=== PATIENT | female | born 1945 | race Caucasian/White ===

== ENCOUNTER 2021-01-31 14:49 | Emergency (ER) | payer MEDICARE, BC ==
[~2021-01-31] VITALS: Ht 154.9 cm; Wt 79.5 kg
[2021-01-31] MEDS ORDERED: fentaNYL PF VIAL 100 MCG/2 ML VIAL IVP ONE (15:30)
[2021-01-31 15:51] LABS: BILIRUBIN,URINE NEGATIVE (NEG); CLARITY,URINE CLEAR; COLOR,URINE YELLOW; NITRITE,URINE NEGATIVE (NEG); PROTEIN,URINE NEGATIVE (NEG-TRACE); UROBILINOGEN,URINE 0.2 mg/dL (0.2 mg/dL)
--- NOTE | 2021-01-31 15:56 | PHYS DOC ---
Past Medical History Past Surgical History: No Surgical History General Adult EDM: Chief Complaint: MECHANICAL FALL HPI: HPI: Patient is a 75 year old female who presents with was walking into [employer] when she tripped and fell over a rubber covered extension cord that was outside. states that they were doing a grill out in front of [employer] and they had it going straight in front of the store and she tripped over it. and patient deny LOC. Patient states she does have a headache that she rates an 8 out of 10. Patient complaints are headache, facial pain with no swelling and a laceration to the upper lip and lower lip and superficial abrasion to the right knee. Patient is on a baby aspirin. Denies syncope, dizziness, nausea, vomiting, back pain, numbness tingling, focal weakness, abdominal pain, chest pain, shortness of air, cough, vision change. Review of Systems: Review of Systems: Constitutional: Denies fever or chills. [] Eyes: Denies change in visual acuity. [] HENT: Denies nasal congestion or sore throat. + Nasal swelling. [] Respiratory: Denies cough or shortness of breath. Cardiovascular: Denies chest pain or edema. [] GI: Denies abdominal pain, nausea, vomiting, bloody stools or diarrhea. [] : Denies dysuria. [] Musculoskeletal: Denies back pain or joint pain. + Facial pain. + Neck t ightness [] Integument: Denies rash. + Knee abrasion [] Neurologic: +headache, denies focal weakness or sensory changes. [] Endocrine: Denies polyuria or polydipsia. [] Lymphatic: Denies swollen glands. [] Psychiatric: Denies depression or anxiety. [] Heart Score: C/O Chest Pain: No Current Medications: Current Medications Medications (Trade) Dose Ordered Sig/Miles Start Time Stop Time Status Last Admin Dose Admin Diphtheria/ Tetanus/Acell Pertussis (ADACEL TDap SYRINGE) 0.5 ml ONCE ONCE 01/31/21 15:30 01/31/21 15:31 UNV Fentanyl Citrate (Fentanyl 2ml Vial) 25 mcg 1X ONCE 01/31/21 15:30 01/31/21 15:31 UNV Neomycin/ Polymyxin/ Bacitracin (Triple Antibiotic Ointment) 3 pkt 1X ONCE 01/31/21 15:30 01/31/21 15:31 UNV Physical Exam: PE: Constitutional: Well developed, well nourished, no acute distress, non-toxic appearance. [] HENT: Normocephalic, atraumatic, bilateral external ears normal, oropharynx moist, no oral exudates, nose normal. Nasal swelling 1+. Dried blood in nares. [] Eyes: PERRLA, EOMI, conjunctiva normal, no discharge. [] Neck: Normal range of motion, focal bony tenderness, supple, no stridor. [] Cardiovascular:Heart rate regular rhythm, no murmur [] Lungs & Thorax: Bilateral breath sounds clear to auscultation [] Abdomen: Bowel sounds normal, soft, no tenderness, no masses, no pulsatile masses. [] Skin: Warm, dry, no erythema, no rash. Superficial abrasion to the right knee. Through and through less than half a centimeter long upper lip laceration that does not affect the vermilion border. Patient has a less than half a centimeter puncture wound to the inner lip that is not through and through. [] Back: No tenderness, no CVA tenderness. [] Extremities: No tenderness, no cyanosis, no clubbing, ROM intact, no edema. [] Neurologic: Alert and oriented X 3, normal motor function, normal sensory function, no focal deficits noted. [] Psychologic: Affect normal, judgement normal, mood normal. [] Current Patient Data: Vital Signs: Vital Signs Date Time Temp Pulse Resp B/P (MAP) Pulse Ox O2 Delivery O2 Flow Rate FiO2 01/31/21 15:00 99.4 91 18 167/68 (101) 97 Room Air 99.4 EKG: EKG: [] Radiology/Procedures: Radiology/Procedures: [] Impression: [facility] [address] [place] [address] IMAGING REPORT Signed PATIENT: MYRIAM GRANADO ACCOUNT: [id number] : 1945 LOCATION: ER AGE: 75 SEX: F EXAM STATUS: REG ER ORD. PHYSICIAN: JOSE DANIEL HAYDEN APRN REASON: FALL, HEAD AND FACE INJURY, NECK PAIN PROCEDURE: CT HEAD AND CERVICAL SPINE WO EXAMINATION: CT HEAD AND C-SPINE WO, CT MAXILLOFACIAL WITHOUT CONTRAST CLINICAL HISTORY: Reason: FALL, HEAD AND FACE INJURY, NECK PAIN / Spl. Instructions: / History: TECHNIQUE: Serial axial images without IV contrast were obtained from the vertex to the foramen magnum. Spiral high resolution axial unenhanced images were obtained through the facial bones with sagittal and coronal planar reconstructions. CT of the cervical spine without IV contrast. Spiral, high resolution axial images were obtained from the skull base to the cervicothoracic junction with sagittal and coronal planar reconstructions. CT Dose Reduction Employed: One or more of the following individualized dose reduction techniques were utilized for this examination: 1. Automated exposure control 2. Adjustment of the mA and/or kV according to patient size 3. Use of iterative reconstruction technique. COMPARISON: None FINDINGS: BRAIN: Acute Change: No evidence of an acute contusion or other acute parenchymal process. Hemorrhage: No evidence of acute intracranial hemorrhage. Mass Lesion/Mass Effect: No evidence of intracranial mass or extraaxial fluid collection. No significant mass effect. Chronic Change: Scattered patchy foci of hypoattenuation in the supratentorial white matter, nonspecific but likely represents mild microvascular ischemia. Atherosclerotic calcification of the intracranial portion of the bilateral internal carotid arteries. Parenchyma: Mild to moderate generalized volume loss. Ventricles: Ventricular enlargement concordant with degree of parenchymal volume loss. Skull Base: No evidence of acute calvarial fracture. MAXILLOFACIAL: Soft Tissues: Subcutaneous contusion and mild subcutaneous emphysema along the bridge of the nose and midline inferior frontal scalp. Facial Bones: Minimally depressed nasal bone fracture. Orbits: No evidence of acute orbital fracture. Globes are intact with bilateral intraocular lens implants. Soft tissue planes of the orbits maintained. Paranasal Sinuses: Mild secretions versus blood products in the dependent left maxillary sinus. Other: 4 mm density with adjacent small focus of subcutaneous emphysema in the midline upper lip, possibly a chipped tooth fragment in the upper lip. No donor site definitively visualized, however evaluation is limited by streak artifact associated with multiple dental fillings. Mild nasal septal deviation to the right. Bilateral TMJ arthropathy. C-SPINE: Alignment: Straightening of Osseous Structures: No evidence of acute fracture or spondylolisthesis. Degenerative Changes: Mild multilevel degenerative disc disease. No evidence of high-grade osseous spinal or neural foraminal stenosis. Mild subcutaneous arthr opathy. Cervical Soft Tissues: No prevertebral soft tissue swelling. IMPRESSION: BRAIN: No evidence of acute intracranial abnormality. MAXILLOFACIAL: Minimally depressed nasal bone fracture with overlying subcutaneous contusion and mild subcutaneous emphysema. 4 mm density in the midline upper lip, possibly a chipped tooth fragment as described, correlate clinically. C-SPINE: No evidence of acute osseous abnormality involving the cervical spine. Electronically signed by: Jesus Huber DO (01/31/2021 5:32 PM) [facility] DICTATED and SIGNED BY: JESUS HUBER DO DATE: 01/31/21 [id number] 0 Course & Med Decision Making: Course & Med Decision Making Pertinent Labs and Imaging studies reviewed. (See chart for details) See HPI. Alert and oriented x4. 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 Ambulatory with a steady gait. Focal bony spinal tenderness to the cervical spine in the neck area. She does have full range of motion of her neck. Nasal swelling 2+ with dried blood in nares bilaterally. She does have an upper lip puncture wound from her bottom teeth that is through and through but does not affect the vermilion border. Patient states she does not want any sutures in her lip if it is not absolutely needed. She does have a second puncture wound in the bottom lip but it is not through and through. No gaping wounds. She has a superficial abrasion to the right knee. No swelling to any joints or deformity. She is moving all of her joints. She denies any numbness or tingling. Neurologically intact. PERRLA. She can breathe out of her nose. There is no is no hematoma. Speaks in full clear sentences. No damage to teeth or her tongue. Patient will receive a tetanus shot as she cannot remember the last shot was. No foreign body is felt or seen in the upper lip. Patient's teeth do not appear to be broken or chipped. Wounds are cleaned with saline and chlorhexidine. Patient again refusing any laceration repair to the upper lip. Patient does have a nasal bone fracture. She will need follow-up with ENT. [] Damion Disclaimer: Damion Disclaimer: This electronic medical record was generated, in whole or in part, using a voice recognition dictation system. Departure Departure Impression: Primary Impression: Nasal bone fracture Qualified Codes: S02.2XXA - Fracture of nasal bones, initial encounter for closed fracture Additional Impressions: Abrasion Laceration of lip Qualified Codes: S01.511A - Laceration without foreign body of lip, initial encounter Disposition: HOME / SELF CARE / HOMELESS Condition: STABLE Referrals: IWONA LONDONO MD Patient Instructions: Abrasions, Fall Prevention and Home Safety, Nasal Fracture, Nose Drops, Saline, [id number] Additional Instructions: Follow-up with your primary care or an ENT doctor for your nasal bone fracture. Do not blow your nose. Use saline nasal spray to help with mucus secretions. Use ice or heating pad to help with any kind of pain you have. Use antibiotic ointment over your wounds. If you begin having vomiting, dizziness, severe headache or a syncopal episode or family is stating that you are not acting herself you should return to the emergency room. Use Tylenol or ibuprofen to help with your pain. Scripts Chlorhexidine Gluconate (PERIDEX) 15 Ml Mouthwash 15-30 ML PO TID for 8 Days, #473 ML 0 Refills SWISH AND SPIT AFTER EVERY MEAL Prov: JOSE DANIEL HAYDEN APRN 01/31/21 JOSE DANIEL HAYDEN APRN Jan 31, 2021 15:56
[2021-01-31 15:59] LABS: BACTERIA,URINE 0 /HPF (0-FEW); RBC,URINE 0 /HPF (0-2); WBC,URINE OCC /HPF (0-4)
[2021-01-31] MEDS ORDERED: HYDROcodone/APAP 5/325MG 1 TAB TABLET PO ONE (16:00)
[2021-01-31] MEDS ORDERED: NEOMY/BACITR/POLYMYXIN OINT PACKET. TP ONE (17:30)
[2021-01-31] MEDS ORDERED: DIPH,PERTUSS(ACELL),TET VAC/PF 0.5 ML SYRINGE. VAX IM ONE (17:30)
--- NOTE | 2021-01-31 17:34 | RAD ---
EXAMINATION: CT HEAD AND C-SPINE WO, CT MAXILLOFACIAL WITHOUT CONTRAST CLINICAL HISTORY: Reason: FALL, HEAD AND FACE INJURY, NECK PAIN / Spl. Instructions: / History: TECHNIQUE: Serial axial images without IV contrast were obtained from the vertex to the foramen magnum. Spiral high resolution axial unenhanced images were obtained through the facial bones with sagittal a nd coronal planar reconstructions. CT of the cervical spine without IV contrast. Spiral, high resolution axial images were obtained from the skull base to the cervicothoracic junction with sagittal and coronal planar reconstructions. CT Dose Reduction Employed: One or more of the following individualized dose reduction techniques wer e utilized for this examination: 1. Automated exposure control 2. Adjustment of the mA and/or kV ac cording to patient size 3. Use of iterative reconstruction technique. COMPARISON: None FINDINGS: BRAIN: Acute Change: No evidence of an acute contusion or other acute parenchymal process. Hemorrhage: No evidence of acute intracranial hemorrhage. Mass Lesion/Mass Effect: No evidence of intracranial mass or extraaxial fluid collection. No signific ant mass effect. Chronic Change: Scattered patchy foci of hypoattenuation in the supratentorial white matter, nonspeci fic but likely represents mild microvascular ischemia. Atherosclerotic calcification of the intracran ial portion of the bilateral internal carotid arteries. Parenchyma: Mild to moderate generalized volume loss. Ventricles: Ventricular enlargement concordant with degree of parenchymal volume loss. Skull Base: No evidence of acute calvarial fracture. MAXILLOFACIAL: Soft Tissues: Subcutaneous contusion and mild subcutaneous emphysema along the bridge of the nose and midline inferior frontal scalp. Facial Bones: Minimally depressed nasal bone fracture. Orbits: No evidence of acute orbital fracture. Globes are intact with bilateral intraocular lens impl ants. Soft tissue planes of the orbits maintained. Paranasal Sinuses: Mild secretions versus blood products in the dependent left maxillary sinus. Other: 4 mm density with adjacent small focus of subcutaneous emphysema in the midline upper lip, pos sibly a chipped tooth fragment in the upper lip. No donor site definitively visualized, however evalu ation is limited by streak artifact associated with multiple dental fillings. Mild nasal septal devia tion to the right. Bilateral TMJ arthropathy. C-SPINE: Alignment: Straightening of Osseous Structures: No evidence of acute fracture or spondylolisthesis. Degenerative Changes: Mild multilevel degenerative disc disease. No evidence of high-grade osseous sp inal or neural foraminal stenosis. Mild subcutaneous arthropathy. Cervical Soft Tissues: No prevertebral soft tissue swelling. IMPRESSION: BRAIN: No evidence of acute intracranial abnormality. MAXILLOFACIAL: Minimally depressed nasal bone fracture with overlying subcutaneous contusion and mild subcutaneous e mphysema. 4 mm density in the midline upper lip, possibly a chipped tooth fragment as described, correlate clin ically. C-SPINE: No evidence of acute osseous abnormality involving the cervical spine. Electronically signed by: Jesus George DO (01/31/2021 5:32 PM) SANDY
[2021-01-31] MEDS ORDERED: CHLO15MO2 PO (17:56)
[2021-01-31 18:00] VITALS: BP 126/73
--- NOTE | 2021-02-01 04:34 | EKG ---
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
== END 2021-01-31 18:00 | disposition home or self-care (01) ==
LOC: ER 14:49
DX: S02.2XXA Fracture of nasal bones, initial encounter for closed fracture (principal); S01.511A Laceration without foreign body of lip, initial encounter; W01.0XXA Fall on same level from slipping, tripping and stumbling without subsequent striking against object, initial encounter; Y93.89 Activity, other specified; Y92.89 Other specified places as the place of occurrence of the external cause; Y99.8 Other external cause status
CPT/HCPCS: 70450; 70486; 72125; 81001; 82962; 90471; 90715; 93005; 99285-25